=== PATIENT | male | born 1960 | race African-American/Black ===

== ENCOUNTER → 2016-10-26 | Outpatient (CLI) | payer OTHER ==
--- NOTE | 2016-10-26 15:59 | EEG Procedure Note ---
EEG Procedure Note Date of Service Oct 26, 2016. Start / End Times Start Time: 8:45 AM End Time: 9:05 AM Referring Physician Gilbert Moraes History This is a 56-year-old male with seizure-like episodes. EEG for further evaluation of seizures. Pertinent home medications: Lamictal, Topamax Description This is a 21 electrode EEG with a single channel dedicated to limited EKG. The electrodes were placed in accordance with the International 10-20 system. At the start of the recording the patient was in an awake state. Background was well organized and composed of symmetric mixed alpha and beta frequencies. There was a symmetric well-formed moderate amplitude 8-9 Hz posterior dominant rhythm that was reactive to eye opening and closure. Hyperventilation was not done. Intermittent photic stimulation at various frequencies produced no abnormalities. Drowsiness was indicated by loss of muscle artifact and slowing of the background rhythm. There was no sleep transients. Interpretation This is a normal awake and drowsy routine EEG. There was no electrographic seizures or epileptiform discharges. Clinical Correlation A normal EEG does not rule out epilepsy if there is a strong clinical suspicion.
== END | disposition home or self-care (01) ==
LOC: C.NEUR 08:33
PROVIDERS: ATTEND Internal Medicine
DX: R41.9 Unspecified symptoms and signs involving cognitive functions and awareness (principal); R56.9 Unspecified convulsions